=== PATIENT | male | born 2000 | race Asian ===

== ENCOUNTER 2019-05-28 09:32 | Emergency (ER) | payer OTHER ==
[2019-05-28 09:37] VITALS: BP 136/71; PULSE 66; TEMP 98.3; BMI 28.1
--- NOTE | 2019-05-28 10:01 | PDOC ---
History of Present Illness - General Chief Complaint: Laceration Stated Complaint: LT SIDE RING FINGER LACERATION Time Seen by Provider: 05/28/19 10:00 History Source: Patient Exam Limitations: No Limitations - History of Present Illness Initial Comments: 05/28/19 14:18 HPI: 18-year-old boy presents to the emergency room with complaints of a left hand fourth digit distal and phalangeal with a laceration from a slicing machine at the [facility]. States he cleared it out and is continued to bleed with a dressing in place from triage. He has no neurological deficits. He states that it is painful and bleeding has been somewhat controlled. Chief Compliant: Laceration Pain location: Left hand laceration Duration: Modifying factors: Quality: Radiating: Severity: Time: PMH: Denies FH: Pt has not recently traveled outside the country in the last 30 days. Pt has not been in contact with people who have traveled out of the country, in contact with people who have been ill with fever, n, v, d. SH: smoking use: NONE illicit drug use: NONE alcohol use: NONE employment/educational status: Works in [employer] sexual history: PSH: Denies Home med use noted on OCT Allergies: NKA Immunizations: Cannot recall his tetanus history tetanus is provided to him today Past History - Past Medical History Allergies/Adverse Reactions: Allergies Allergy/AdvReac Type Severity Reaction Status Date / Time No Known Allergies Allergy Verified 05/28/19 09:37 Home Medications: Ambulatory Orders NK [No Known Home Medication] 05/28/19 COPD: No - Psycho Social/Smoking Cessation Hx Smoking History: Current some day smoker Information on smoking cessation initiated: No Review of Systems - Review of Systems Able to Perform ROS?: Yes Comments:: 05/28/19 14:19 General statement: Hematology: neg history of bleeding/blood thinners Skin: Neg for lesions, rash, bruising. Noted laceration left hand fourth digit distal to the lateral aspect of the nailbed not affecting nailbed HEENT: Neg symptoms Respiratory: Neg SOB or difficulty in breathing Cardiac: Neg chest pain GI: Neg pain, n/v : Neg problems on voiding MS: Neg for joint pain/stiffness, no edema Neuro: Neg for LOC, weakness, Endocrine: Neg for excess thirst/hunger, cold/heat intolerance, excess sweating Allergies: Neg for allergies *Physical Exam - Vital Signs Last Vital Signs Temp Pulse Resp BP Pulse Ox 98.3 F 66 18 136/71 99 05/28/19 09:33 05/28/19 09:33 05/28/19 09:33 05/28/19 09:33 05/28/19 09:33 - Physical Exam Comments: 05/28/19 14:19 General Appearance: This well appearing V/S: hemodynamically stable, afebrile Skin: WNL of pt's skin color, no signs of pallor, mottling, cyanosis laceration left hand area clean bleeding controlled Head:symmetrical Eyes: EOM's intact, PERRLA Ears: denies pain Nose: patent Throat: lips, teeth, gums, tongue, buccal mucos pink and moist Lungs: Chest symmetry equal. Cap refill <3 seconds. Lung sounds clear Cardiac: PMI at R 4MCL space, pos S1 and S2, regular rate. Abdomen: Soft, round, nontender : Not observed Muscularskeletal: Gait steady, ambulated in to ER, no edema +PMS Neuro: AAOx3, cognitively intact, speech clear and appropriate. Procedures - Laceration/Wound Repair Left Lateral Hand 4th digit Wound Length: to 2.5 cm Wound Explored: clean Wound's Depth, Shape: linear Irrigated w/ Saline: Yes Betadine Prep: Yes Anesthesia: 1% Lidocaine Amount of Anesthetic (ccs): 5 Wound Debrided: minimal Wound Repaired With: Sutures Suture Size/Type: 5:0, nylon Number of Sutures: 5 Layer Closure: No Medical Decision Making - Medical Decision Making 05/28/19 14:21 Surgical laceration repair completed in ER. Tetanus provided. Discharge - Discharge Information Problems reviewed: Yes Clinical Impression/Diagnosis: Laceration Condition: Good Disposition: HOME - Admission No - Follow up/Referral Referrals: Reynold Blount MD [Primary Care Provider] - - Patient Discharge Instructions Patient Printed Discharge Instructions: DI for Laceration Repair Additional Instructions: Discharge instructions laceration repair to the left hand 4th distal tip with 5-0 nylon x [address]. Tetanus given Keep wound clean and dry cover at daytime and open to air at night - Post Discharge Activity Work/Back to School Note: Back to Work
[2019-05-28] MEDS ORDERED: TETANUS AND DIPHTHERIA TOXOID 0.5 ML DISP.SYRIN IM ONE (10:45)
[2019-05-28] MEDS ORDERED: DIPHTH,PERTUSS(ACELL),TET 0.5 ML DISP.SYRIN IM ONE (11:03)
== END 2019-05-28 11:05 | disposition home or self-care (01) ==
LOC: JERFT 09:32
PROC: 3E0234Z Introduction of Serum, Toxoid and Vaccine into Muscle, Percutaneous Approach (ICD-10-PCS; principal; 2019-05-28)
PROC: 0HQGXZZ Repair Left Hand Skin, External Approach (ICD-10-PCS; 2019-05-28)
DX: S61.215A Laceration without foreign body of left ring finger without damage to nail, initial encounter (principal); W31.82XA Contact with other commercial machinery, initial encounter; Y93.G1 Activity, food preparation and clean up; Y92.512 Supermarket, store or market as the place of occurrence of the external cause; Y99.0 Civilian activity done for income or pay
CPT/HCPCS: 99281-25